=== PATIENT | female | born 1975 | race Two or more races ===

== ENCOUNTER 2023-12-31 06:57 | Emergency (ER) | payer BC ==
[~2023-12-31] VITALS: Ht 162.6 cm; Wt 86.2 kg
[2023-12-31] MEDS ORDERED: MORPHINE SULFATE INJ 4 MG/ML DISP.SYRIN ONE ×2 (07:35→08:26)
[2023-12-31] MEDS ORDERED: ONDANSETRON HCL/PF 4 MG/2 ML VIAL ONE (07:35)
[2023-12-31] MEDS: IV NS 0.9% 1,000 ML BAG IV ONE (07:40)
[2023-12-31] MEDS: ONDANSETRON HCL/PF 4 MG/2 ML VIAL IVP ONE (07:41)
[2023-12-31] MEDS: MORPHINE SULFATE INJ 2 MG/ML DISP.SYRIN IV ONE (07:41)
[2023-12-31 07:51] LABS: BASOPHILS % (AUTO) 0.4 % (0.0-2.0); EOSINOPHILS # (AUTO) 0.1 K/uL (0.0-0.7); EOSINOPHILS % (AUTO) 1.4 % (0.0-6.0); HEMATOCRIT 43 % (33-45); HEMOGLOBIN 14.9 g/dL (11.5-14.8); LYMPHOCYTES # (AUTO) 1.4 K/uL (0.8-4.8); MEAN CORPUSCULAR HEMOGLOBIN 30 PG (26.0-33.0); MEAN CORPUSCULAR HGB CONC 34 g/dl (31.0-36.0); MEAN CORPUSCULAR VOLUME 86 fL (82-100); MONOCYTES # (AUTO) 0.5 K/uL (0.1-1.30); MONOCYTES % (AUTO) 11.4 % (2.0-12.0); NEUTROPHILS # (AUTO) 2.5 K/uL (1.8-8.9); NEUTROPHILS % (AUTO) 55.8 % (43.0-81.0); PLATELET COUNT (AUTO) 194 K/uL (150-450); RED BLOOD CELL COUNT(AUTO) 5.04 MIL/uL (4.0-5.2); RED CELL DISTRIBUTION WIDTH 12.8 % (11.5-15.0); WHITE BLOOD COUNT (AUTO) 4.6 K/uL (4.3-11.0)
[2023-12-31 08:02] LABS: BILIRUBIN,DIRECT 0.2 mg/dL (0.0-0.2); BILIRUBIN,TOTAL 0.6 mg/dL (0.2-1.0); CALCIUM, SERUM 8.7 mg/dL (8.5-10.1); CREATININE 0.7 mg/dL (0.6-1.3); POTASSIUM 3.7 mmol/L (3.5-5.1); TOTAL PROTEIN, SERUM 7.8 g/dL (6.4-8.2)
[2023-12-31 08:25] LABS: PREGNANCY TEST URINE QUAL NEGATIVE (NEGATIVE)
[2023-12-31 08:26] LABS: APPEARANCE,URINE CLEAR (CLEAR); BILIRUBIN,URINE 1+ (NEGATIVE); BLOOD, URINE NEGATIVE Ery/uL (NEGATIVE); COLOR,URINE DARK YELLOW (YELLOW); KETONES,URINE TRACE mg/dL (NEGATIVE); LEUKOCYTE ESTERASE ,URINE NEGATIVE (NEGATIVE); NITRITE, URINE POSITIVE (NEGATIVE); PROTEIN,URINE NEGATIVE (NEGATIVE); UGLUCOSE NEGATIVE (NEGATIVE)
[2023-12-31 08:31] LABS: ADD URINE CULTURE YES; BACTERIA,URINE Moderate /HPF (None Seen); SQUAMOUS EPITHELIAL CELL,UR Rare /HPF (None Seen)
[2023-12-31] MEDS ORDERED: KETOROLAC TROMETHAMINE 15 MG/ML VIAL ONE (09:20)
[2023-12-31] MEDS ORDERED: CEPHALEXIN MONOHYDRATE 500 MG CAPSULE PO ONE (09:21)
[2023-12-31] MEDS ORDERED: NAPR-1009 PO (09:23)
[2023-12-31] MEDS ORDERED: CEPH500C2 PO (09:23)
[2023-12-31] MEDS: CEPHALEXIN MONOHYDRATE 500 MG CAPSULE PO ONE (09:25)
[2023-12-31] MEDS: KETOROLAC TROMETHAMINE 15 MG/ML VIAL IV ONE (09:25)
[2023-12-31 09:54] VITALS: BP 118/64; TEMP 98; O2SAT 97
== END 2023-12-31 09:54 | disposition home or self-care (01) ==
LOC: ER 07:00
DX: N39.0 Urinary tract infection, site not specified (principal); I88.0 Nonspecific mesenteric lymphadenitis; K42.9 Umbilical hernia without obstruction or gangrene; R10.2 Pelvic and perineal pain; Z87.442 Personal history of urinary calculi
CPT/HCPCS: 99285; 74176; 96374; 96361; 96375; 85025; 80048; 87086; 83690; 80076; 84703; 81001; 36415; J2270; J7030; J1885; J2405

== ENCOUNTER 2024-02-22 21:19 | Emergency (ER) | payer BC ==
[~2024-02-22 21:19] MED LIST: CEPH500C2 PO; NAPR-1009 PO
[2024-02-23] MEDS ORDERED: CYCL5TAB PO (10:04)
[2024-02-23] MEDS ORDERED: IBUP-1955 PO (10:04)
[2024-02-23] MEDS ORDERED: LIDO30AD10 TP (10:04)
[2024-02-23] MEDS ORDERED: HYDR-4303 PO (10:04)
== END 2024-02-23 01:08 | disposition left against medical advice (07) ==
LOC: ER 21:20
DX: M79.10 Myalgia, unspecified site (principal); Z53.21 Procedure and treatment not carried out due to patient leaving prior to being seen by health care provider

== ENCOUNTER 2024-02-23 08:12 | Emergency (ER) | payer BC ==
[~2024-02-23] VITALS: Ht 167.6 cm; Wt 83.9 kg
[2024-02-23] MEDS ORDERED: LIDOCAINE 5% (PATCH) 1 EA PATCH TP ONE (08:33)
[2024-02-23] MEDS ORDERED: CYCLOBENZAPRINE 10 MG TABLET ONE (08:34)
[2024-02-23] MEDS ORDERED: MORPHINE SULFATE INJ 4 MG/ML DISP.SYRIN ONE (08:34)
[2024-02-23] MEDS: LIDOCAINE 5% (PATCH) 1 EA PATCH TP STA (08:41)
[2024-02-23] MEDS: MORPHINE SULFATE INJ 2 MG/ML DISP.SYRIN IM ONE (08:42)
[2024-02-23] MEDS: CYCLOBENZAPRINE 10 MG TABLET PO ONE (08:45)
[2024-02-23] MEDS ORDERED: IBUP-1955 PO (10:04)
[2024-02-23] MEDS ORDERED: LIDO30AD10 TP (10:04)
[2024-02-23] MEDS ORDERED: CYCL5TAB PO (10:04)
[2024-02-23] MEDS ORDERED: HYDR-4303 PO (10:04)
[2024-02-23 10:20] VITALS: BP 138/84; TEMP 97.9; O2SAT 99
== END 2024-02-23 10:21 | disposition home or self-care (01) ==
LOC: ER 08:18
DX: S76.312A Strain of muscle, fascia and tendon of the posterior muscle group at thigh level, left thigh, initial encounter (principal); X58.XXXA Exposure to other specified factors, initial encounter; Y93.02 Activity, running; Y92.89 Other specified places as the place of occurrence of the external cause; Y99.8 Other external cause status
CPT/HCPCS: 99284; 96372; 73610; 73503; 73564; J2270; 73502